=== PATIENT | female | born 1955 | race Caucasian/White ===

== ENCOUNTER 2016-07-09 13:42 | Emergency (ER) | payer OTHER ==
[~2016-07-09] VITALS: Ht 170.2 cm; Wt 85.0 kg
[2016-07-09 13:49] VITALS: BP 147/88; PULSE 92; RESP 16; TEMP 98; O2SAT 96
[2016-07-09] MEDS ORDERED: PANT40TA3 PO (15:06)
[2016-07-09] MEDS ORDERED: AMLO10TA2 PO (15:06)
[2016-07-09] MEDS ORDERED: ESTR0.5T PO (15:06)
[2016-07-09] MEDS ORDERED: LEVOTAB PO (15:06)
[2016-07-09] MEDS ORDERED: MONT10TA2 PO (15:06)
[2016-07-09] MEDS ORDERED: ZITHTAB PO (15:36)
--- NOTE | 2016-07-09 15:37 | PD ---
HPI Chief Complaint: Respiratory Symptoms Time Seen by Provider: 15:33 Travel History International Travel<30 days: No Contact w/Intl Traveler<30days: No Traveled to known affect area: No History of Present Illness HPI Patient presents with aggravation of chronic intermittent bronchiectasis. Previously saw a field contractor who would intermittently give her Kenalog 4010 mg and an oral antibiotic to resolve her symptoms. Denies any chest pain. Mild shortness of breath. Mild cough. Denies nausea vomiting diarrhea or fever. PFSH Past Medical History GERD: Yes Hypertension: Yes Respiratory: Yes (BRONCHIACTICIS) Influenza Vaccination: Yes ?: Not Past Surgical History Abdominal Surgery: Yes (COLON RESECTION) Genitourinary Surgery: Yes (BLADDER SLING X2) Hysterectomy: Yes Tonsillectomy: Yes Other Surgery: Yes (SINUS SURGERY) Social History Alcohol Use: Yes (SOCIALLY) Tobacco Use: No Substance Use: No Allergies-Medications (Allergen,Severity, Reaction): Coded Allergies: Codeine (Verified Allergy, Unknown, 07/09/16) Penicillin (Verified Allergy, Unknown, 07/09/16) Sulfa (Verified Allergy, Unknown, 07/09/16) Reported Meds & Prescriptions Reported Meds & Active Scripts Active Reported Amlodipine (Amlodipine Besylate) 10 Mg Tab 10 Mg PO DAILY Estradiol 0.5 Mg Tab 0.5 Mg PO DAILY Levocetirizine 5 Mg Tab 5 Mg PO DAILY Pantoprazole (Pantoprazole Sodium) 40 Mg Tab 40 Mg PO DAILY Singulair (Montelukast Sodium) 10 Mg Tab 10 Mg PO HS Review of Systems General / Constitutional: No: Fever Eyes: No: Visual changes HENT: No: Headaches Cardiovascular: No: Chest Pain or Discomfort Respiratory: Positive: Shortness of Breath, Wheezing Gastrointestinal: No: Abdominal Pain Genitourinary: No: Dysuria Musculoskeletal: No: Pain Skin: No Rash Neurologic: No: Weakness Psychiatric: No: Depression Endocrine: No: Polydipsia Hematologic/Lymphatic: No: Easy Bruising Physical Exam Narrative GENERAL: Well-nourished, well-developed patient. SKIN: Warm and dry. HEAD: Normocephalic. EYES: No scleral icterus. No injection or drainage. NECK: Supple, trachea midline. No JVD or lymphadenopathy. CARDIOVASCULAR: Regular rate and rhythm without murmurs, gallops, or rubs. RESPIRATORY: Breath sounds equal bilaterally. No accessory muscle use. Mild end expiratory wheeze GASTROINTESTINAL: Abdomen soft, non-tender, nondistended. MUSCULOSKELETAL: No cyanosis, or edema. BACK: Nontender without obvious deformity. No CVA tenderness. Data Data Last Documented VS Vital Signs Date Time Temp Pulse Resp B/P Pulse Ox O2 Delivery O2 Flow Rate FiO2 07/09/16 15:07 96 Room Air 07/09/16 13:49 98.0 92 16 147/88 MDM Medical Decision Making Medical Screen Exam Complete: Yes Emergency Medical Condition: Yes Differential Diagnosis Bronchiectasis, COPD, asthma Narrative Course Assessment and plan discussed with patient at bedside Diagnosis Primary Impression: Bronchiectasis Qualified Code: J47.1 - Bronchiectasis with acute exacerbation Additional Instructions: Encouraged to follow-up with PCP symptoms do not improve, discussed getting a field contractor Med/Other Pt SpecificInfo: Prescription(s) given Scripts Azithromycin (Zithromax Z-Jax)250 Mg [id number] Mg PO DIRECTED #1 DSPK Ref 0 500 MG (2 tabs) day 1, then 1 tab days 2-5. Prov:Kevin Richardson MD 07/09/16 Disposition: 01 DISCHARGE HOME Condition: Good Kevin Richardson MD Jul 09, 2016 15:37
[2016-07-09] MEDS ORDERED: TRIAMCINOLONE ACETONIDE 40 MG/ML VIAL IM ONE (15:45)
== END 2016-07-09 15:48 | disposition home or self-care (01) ==
LOC: PHED 14:30
DX: J47.9 Bronchiectasis, uncomplicated (principal)
CPT/HCPCS: 96372; 99283; J3301

== ENCOUNTER 2016-09-27 10:05 | Emergency (ER) | payer OTHER ==
[~2016-09-27] VITALS: Ht 170.2 cm; Wt 86.8 kg
[~2016-09-27 10:05] MED LIST: AMLO10TA2 PO; ESTR0.5T PO; LEVOTAB PO; MONT10TA2 PO; PANT40TA3 PO; ZITHTAB PO
[2016-09-27 10:10] VITALS: BP 135/86; PULSE 83; RESP 17; TEMP 98; O2SAT 98
[2016-09-27] MEDS ORDERED: ZANT150T2 PO (10:24)
[2016-09-27] MEDS ORDERED: DOXY1CAP74 PO (10:24)
[2016-09-27] MEDS ORDERED: LISI-515 PO (10:24)
[2016-09-27] MEDS ORDERED: PROT40TA PO (10:24)
[2016-09-27] MEDS ORDERED: DEXAMETHASONE SOD PHOS 20 MG/5 ML VIAL IM ONE (10:45)
--- NOTE | 2016-09-27 11:00 | PD ---
HPI Chief Complaint: Respiratory Symptoms Time Seen by Provider: 10:17 Travel History International Travel<30 days: No Contact w/Intl Traveler<30days: No Traveled to known affect area: No History of Present Illness HPI Patient is a 60-year-old female who comes in requesting a shot of steroids. She says she has bronchiectasis and when she starts coughing, she needs steroids. She has been coughing since Monday. She saw her primary care doctor Monday and was given a prescription for doxycycline. She says she is concerned because she is supposed to have a double mastectomy tomorrow and says she cannot be coughing like this. She says the only thing that helps is a shot of steroids. She says she cannot take oral steroids because it upsets her stomach. She denies any fever or chills. She denies any pain. PFSH Past Medical History Cancer: Yes (BREAST) GERD: Yes Hypertension: Yes Respiratory: Yes (BRONCHIECTASIS) Past Surgical History Abdominal Surgery: Yes (COLON RESECTION) Genitourinary Surgery: Yes (BLADDER SLING X2) Hysterectomy: Yes Tonsillectomy: Yes Other Surgery: Yes (SINUS SURGERY) Social History Alcohol Use: Yes (SOCIALLY) Tobacco Use: No Substance Use: No Allergies-Medications (Allergen,Severity, Reaction): Coded Allergies: Codeine (Verified Allergy, Unknown, 09/27/16) Penicillin (Verified Allergy, Unknown, 09/27/16) Sulfa (Verified Allergy, Unknown, 09/27/16) Reported Meds & Prescriptions Reported Meds & Active Scripts Active Reported Doxycycline 40 Mg Cap 10 Mg PO DAILY Zantac (Ranitidine HCl) 150 Mg Tab 150 Mg PO DAILY Lisinopril 20 Mg Tab 20 Mg PO DAILY Protonix (Pantoprazole Sodium) 40 Mg Tab 40 Mg PO DAILY Amlodipine (Amlodipine Besylate) 10 Mg Tab 10 Mg PO DAILY Estradiol 0.5 Mg Tab 0.5 Mg PO DAILY Levocetirizine 5 Mg Tab 5 Mg PO DAILY Singulair (Montelukast Sodium) 10 Mg Tab 10 Mg PO HS Review of Systems General / Constitutional: No: Fever, Chills HENT: No: Headaches, Lightheadedness Cardiovascular: No: Chest Pain or Discomfort Respiratory: Positive: Cough Gastrointestinal: No: Nausea, Vomiting Musculoskeletal: No: Myalgias, Weakness Skin: No Rash, No Change in Pigmentation Neurologic: No: Weakness, Dizziness Physical Exam Narrative GENERAL: Awake and alert, in no acute distress. SKIN: Focused skin assessment warm/dry. HEAD: Atraumatic. Normocephalic. EYES: Pupils equal and round. No scleral icterus. ENT: Mucous membranes pink and moist. CARDIOVASCULAR: Regular rate and rhythm. No murmur appreciated. RESPIRATORY: No accessory muscle use. Clear to auscultation. Breath sounds equal bilaterally. MUSCULOSKELETAL: No obvious deformities. No clubbing. No cyanosis. No edema. NEUROLOGICAL: Awake and alert. No obvious cranial nerve deficits. Motor grossly within normal limits. Normal speech. Data Data Last Documented VS Vital Signs Date Time Temp Pulse Resp B/P Pulse Ox O2 Delivery O2 Flow Rate FiO2 09/27/16 10:10 98.0 83 17 135/86 98 Orders Dexamethasone Inj (Decadron Inj) (09/27/16 10:45) [facility] Medical Decision Making Medical Screen Exam Complete: Yes Emergency Medical Condition: Yes Differential Diagnosis URI versus bronchitis versus pneumonia Narrative Course Patient is a 60-year-old female with history of bronchiectasis, who comes in requesting a shot of steroids. She is coughing, but lung sounds are clear. Patient given Decadron IM. Advised follow-up with her doctors. Advised to return to the ED as needed for any worsening symptoms. Diagnosis Primary Impression: Bronchiectasis Qualified Code: J47.1 - Bronchiectasis with acute exacerbation Patient Instructions: Bronchiectasis (ED), General Instructions Additional Instructions: Follow up with your primary doctor. Return to the ED as needed for any worsening symptoms. Disposition: 01 DISCHARGE HOME Condition: Stable Torri Lozano MD September 27, 2016 11:00
== END 2016-09-27 11:10 | disposition home or self-care (01) ==
LOC: PHEFT 10:05
DX: J47.9 Bronchiectasis, uncomplicated (principal); K21.9 Gastro-esophageal reflux disease without esophagitis; I10 Essential (primary) hypertension; Z79.899 Other long term (current) drug therapy; Z88.5 Allergy status to narcotic agent; Z88.0 Allergy status to penicillin; Z88.2 Allergy status to sulfonamides; Z85.3 Personal history of malignant neoplasm of breast
CPT/HCPCS: 96372; 99284; J1100